=== PATIENT | male | born 1935 | race Caucasian/White ===

== ENCOUNTER 2020-07-06 22:57 | Inpatient (IN) ==
[2020-07-07] MEDS ORDERED: Ondansetron 4 MG/2 ML VIAL IVP PRN (01:27)
[2020-07-07] MEDS ORDERED: Naloxone 0.4 MG/ML INJ IVP PRN (01:27)
[2020-07-07] MEDS ORDERED: 0.9 % Sodium Chloride 1,000 ML IVC ONE ×2 (01:31→07:22)
[2020-07-07] MEDS ORDERED: *HR* LORazepam 2 MG/ML VIAL IVP PRN (01:32)
[2020-07-07 06:04] LABS: Activated Partial Thrombo Time 25.4 Seconds (26.0-36.0)
[2020-07-07 06:10] LABS: Basophils % 0.3 %; Eosinophils % 0.1 %; Hematocrit 36.7 % (37.5-50.1); Hemoglobin 12.4 g/dL (12.9-16.9); Immature Granulocytes % 0.6 % (0-4); Lymphocytes # 1.3 K/mcL (0.6-4.6); Lymphocytes % 17.6 %; Mean Corpuscular HGB Conc 33.8 g/dL (31.6-35.5); Mean Corpuscular Hemoglobin 32.5 pg (28.0-33.3); Mean Corpuscular Volume 96.1 fL (83.0-100.0); Mean Platelet Volume 10.9 fL (9.4-12.4); Monocytes # 0.7 K/mcL (0.0-1.3); Monocytes % 9.9 %; Neutrophils # 5.1 K/mcL (1.6-8.9); Platelet Count 187 K/mcL (140-400); Red Blood Count 3.82 M/mcL (4.19-5.50); Red Cell Distribution Width 12.6 % (11.5-14.5); Segmented Neutrophils % 71.5 %; White Blood Count 7.2 K/mcL (4.3-11.1)
[2020-07-07 06:21] LABS: Alanine Aminotransferase 27 Units/L (7-52); Albumin 3.3 g/dL (3.5-5.7); Albumin/Globulin Ratio 1.7 (1.1-2.2); Alkaline Phosphatase 49 Units/L (34-104); Aspartate Amino Transferase 85 Units/L (13-39); BUN/Creatinine Ratio 26 (6-26); Bilirubin,Total 1.1 mg/dL (0.3-1.0); Blood Urea Nitrogen 31 mg/dL (8-23); Calcium 7.9 mg/dL (8.6-10.3); Carbon Dioxide 20 mEq/L (23-29); Chloride 110 mEq/L (98-107); Globulin 1.9 g/dL (2.4-3.5); Glucose 102 mg/dL (70-105); Magnesium 1.8 mg/dL (1.6-2.6); Osmolality,Calculated 291 (280-300); Phosphorous 3.1 mg/dL (2.7-4.5); Potassium 3.1 mEq/L (3.5-5.1); Sodium 137 mEq/L (136-145); Total Protein 5.2 g/dL (6.4-8.9); Troponin I 0.05 ng/mL (< 0.04); eGFR For African Americans > 60 (> 60); eGFR For Non-African Americans 59 (> 60)
[2020-07-07] MEDS: Thiamine (B-1) 100 MG, Folic Acid 1 MG, MVI, adult with vitamin K 10 ML in 0.9 % Sodi... IVPB SCH ×2 (06:22→15:59)
[2020-07-07] MEDS ORDERED: Potassium Chloride 40 MEQ, Lidocaine 1% 2 ML in 0.9 % Sodium Chloride 500 ML IVPB ONE (06:43)
[2020-07-07 06:45] LABS: Creatine Kinase 5547 Units/L (30-223)
[2020-07-07] MEDS: cefTRIAXone 1,000 MG in Water for inj. (sterile) 10 ML IVP SCH (08:37)
[2020-07-07] MEDS: *HR* Heparin 5,000 UNIT/ML VIAL SQ SCH ×2 (08:37→18:03)
[2020-07-07] MEDS: Acetaminophen 325 MG TABLET PO PRN (15:13)
[2020-07-07] MEDS: *HR* LORazepam 2 MG/ML VIAL IVP PRN ×2 (17:26→21:00)
[2020-07-07] MEDS: Melatonin 3 MG TABLET PO PRN (21:04)
[2020-07-08 06:39] LABS: Basophils % 0.4 %; Eosinophils # 0.1 K/mcL (0.0-0.6); Eosinophils % 1.4 %; Hemoglobin 11.5 g/dL (12.9-16.9); Immature Granulocytes % 0.4 % (0-4); Lymphocytes # 1.1 K/mcL (0.6-4.6); Lymphocytes % 20.5 %; Mean Corpuscular HGB Conc 32.9 g/dL (31.6-35.5); Mean Corpuscular Hemoglobin 32.2 pg (28.0-33.3); Mean Platelet Volume 10.2 fL (9.4-12.4); Monocytes # 0.5 K/mcL (0.0-1.3); Monocytes % 9.4 %; Neutrophils # 3.8 K/mcL (1.6-8.9); Platelet Count 163 K/mcL (140-400); Red Blood Count 3.57 M/mcL (4.19-5.50); Red Cell Distribution Width 12.7 % (11.5-14.5); Segmented Neutrophils % 67.9 %; White Blood Count 5.6 K/mcL (4.3-11.1)
[2020-07-08] MEDS: Acetaminophen 325 MG TABLET PO PRN ×2 (06:51→19:53)
[2020-07-08] MEDS: *HR* Heparin 5,000 UNIT/ML VIAL SQ SCH ×2 (06:52→17:23)
[2020-07-08 06:57] LABS: BUN/Creatinine Ratio 20 (6-26); Blood Urea Nitrogen 19 mg/dL (8-23); Calcium 8.3 mg/dL (8.6-10.3); Carbon Dioxide 21 mEq/L (23-29); Chloride 113 mEq/L (98-107); Glucose 92 mg/dL (70-105); Osmolality,Calculated 288 (280-300); Potassium 3.7 mEq/L (3.5-5.1); Sodium 138 mEq/L (136-145); eGFR For African Americans > 60 (> 60); eGFR For Non-African Americans > 60 (> 60)
[2020-07-08] MEDS: Metoprolol XL (24 HR) Succ 50 MG TAB.ER.24H PO SCH (09:38)
[2020-07-08] MEDS: cefTRIAXone 1,000 MG in Water for inj. (sterile) 10 ML IVP SCH (09:41)
[2020-07-08] MEDS: Spironolactone 25 MG TABLET PO SCH (09:41)
[2020-07-08] MEDS: *HR* LORazepam 2 MG/ML VIAL IVP PRN (19:53)
[2020-07-08] MEDS: Melatonin 3 MG TABLET PO PRN (21:02)
[2020-07-09 00:52] LABS: Basophils % 0.7 %; Eosinophils # 0.1 K/mcL (0.0-0.6); Eosinophils % 2.3 %; Hematocrit 34.3 % (37.5-50.1); Hemoglobin 11.3 g/dL (12.9-16.9); Immature Granulocytes % 0.5 % (0-4); Lymphocytes # 1.3 K/mcL (0.6-4.6); Lymphocytes % 22.3 %; Mean Corpuscular HGB Conc 32.9 g/dL (31.6-35.5); Mean Corpuscular Hemoglobin 31.9 pg (28.0-33.3); Mean Corpuscular Volume 96.9 fL (83.0-100.0); Mean Platelet Volume 10.6 fL (9.4-12.4); Monocytes # 0.5 K/mcL (0.0-1.3); Monocytes % 8.9 %; Neutrophils # 3.9 K/mcL (1.6-8.9); Platelet Count 162 K/mcL (140-400); Red Blood Count 3.54 M/mcL (4.19-5.50); Red Cell Distribution Width 12.2 % (11.5-14.5); Segmented Neutrophils % 65.3 %
[2020-07-09 01:11] LABS: BUN/Creatinine Ratio 18 (6-26); Blood Urea Nitrogen 20 mg/dL (8-23); Calcium 8.4 mg/dL (8.6-10.3); Carbon Dioxide 20 mEq/L (23-29); Chloride 108 mEq/L (98-107); Glucose 98 mg/dL (70-105); Osmolality,Calculated 285 (280-300); Potassium 3.9 mEq/L (3.5-5.1); Sodium 136 mEq/L (136-145); eGFR For African Americans > 60 (> 60); eGFR For Non-African Americans > 60 (> 60)
[2020-07-09] MEDS: *HR* LORazepam 2 MG/ML VIAL IVP PRN ×6 (01:46→23:36)
[2020-07-09] MEDS: *HR* Heparin 5,000 UNIT/ML VIAL SQ SCH ×2 (05:20→17:20)
[2020-07-09] MEDS: Metoprolol XL (24 HR) Succ 50 MG TAB.ER.24H PO SCH (09:14)
[2020-07-09] MEDS: Spironolactone 25 MG TABLET PO SCH (09:14)
[2020-07-09] MEDS: cefTRIAXone 1,000 MG in Water for inj. (sterile) 10 ML IVP SCH (09:15)
[2020-07-09] MEDS: 0.9 % Sodium Chloride 1,000 ML IVC SCH ×2 (11:32→22:13)
[2020-07-09] MEDS: Acetaminophen 325 MG TABLET PO PRN (15:20)
[2020-07-09] MEDS: Thiamine (B-1) 100 MG, Folic Acid 1 MG, MVI, adult with vitamin K 10 ML in 0.9 % Sodi... IVPB SCH (17:19)
[2020-07-10 01:31] LABS: Basophils % 0.7 %; Eosinophils # 0.2 K/mcL (0.0-0.6); Eosinophils % 3.9 %; Hematocrit 35.5 % (37.5-50.1); Hemoglobin 11.8 g/dL (12.9-16.9); Immature Granulocytes % 0.7 % (0-4); Lymphocytes # 1.2 K/mcL (0.6-4.6); Lymphocytes % 21.6 %; Mean Corpuscular HGB Conc 33.2 g/dL (31.6-35.5); Mean Corpuscular Hemoglobin 32.4 pg (28.0-33.3); Mean Corpuscular Volume 97.5 fL (83.0-100.0); Mean Platelet Volume 10.7 fL (9.4-12.4); Monocytes # 0.5 K/mcL (0.0-1.3); Neutrophils # 3.6 K/mcL (1.6-8.9); Platelet Count 203 K/mcL (140-400); Red Blood Count 3.64 M/mcL (4.19-5.50); Red Cell Distribution Width 12.2 % (11.5-14.5); Segmented Neutrophils % 65.1 %; White Blood Count 5.6 K/mcL (4.3-11.1)
[2020-07-10 01:54] LABS: BUN/Creatinine Ratio 16 (6-26); Blood Urea Nitrogen 16 mg/dL (8-23); Calcium 8.9 mg/dL (8.6-10.3); Carbon Dioxide 24 mEq/L (23-29); Chloride 109 mEq/L (98-107); Glucose 99 mg/dL (70-105); Osmolality,Calculated 289 (280-300); Potassium 3.8 mEq/L (3.5-5.1); Sodium 139 mEq/L (136-145); eGFR For African Americans > 60 (> 60); eGFR For Non-African Americans > 60 (> 60)
[2020-07-10] MEDS: *HR* Heparin 5,000 UNIT/ML VIAL SQ SCH ×2 (05:57→17:16)
[2020-07-10] MEDS: *HR* LORazepam 2 MG/ML VIAL IVP PRN (06:28)
[2020-07-10] MEDS: cefTRIAXone 1,000 MG in Water for inj. (sterile) 10 ML IVP SCH (09:03)
[2020-07-10] MEDS: Spironolactone 25 MG TABLET PO SCH (11:10)
[2020-07-10] MEDS: Metoprolol XL (24 HR) Succ 50 MG TAB.ER.24H PO SCH (11:10)
[2020-07-11] MEDS: *HR* Heparin 5,000 UNIT/ML VIAL SQ SCH ×2 (05:34→18:37)
[2020-07-11] MEDS: cefTRIAXone 1,000 MG in Water for inj. (sterile) 10 ML IVP SCH (08:27)
[2020-07-11] MEDS: Thiamine (B-1) 100 MG TABLET PO SCH (08:28)
[2020-07-11] MEDS: Metoprolol XL (24 HR) Succ 50 MG TAB.ER.24H PO SCH (08:28)
[2020-07-11] MEDS: Spironolactone 25 MG TABLET PO SCH (08:28)
[2020-07-11] MEDS: Folic Acid 1 MG TABLET PO SCH (08:28)
[2020-07-11] MEDS: *HR* LORazepam 2 MG/ML VIAL IVP PRN ×4 (14:25→20:24)
[2020-07-11] MEDS ORDERED: Dexmedetomidine HCl 400 MCG/100 ML MLS IVC SCH (22:30)
[2020-07-12] MEDS: *HR* LORazepam 2 MG/ML VIAL IVP PRN ×2 (05:54→06:07)
[2020-07-12] MEDS: *HR* Heparin 5,000 UNIT/ML VIAL SQ SCH ×2 (05:55→18:00)
[2020-07-12] MEDS: Folic Acid 1 MG TABLET PO SCH ×2 (08:00→09:19)
[2020-07-12] MEDS: Thiamine (B-1) 100 MG TABLET PO SCH ×2 (08:00→09:19)
[2020-07-12] MEDS: cefTRIAXone 1,000 MG in Water for inj. (sterile) 10 ML IVP SCH (08:00)
[2020-07-12] MEDS ORDERED: 0.9 % Sodium Chloride 500 ML IVC ONE (08:05)
[2020-07-12] MEDS ORDERED: 0.9 % Sodium Chloride 500 ML ONE (08:08)
[2020-07-12] MEDS: Spironolactone 25 MG TABLET PO SCH (09:18)
[2020-07-12] MEDS: Metoprolol XL (24 HR) Succ 50 MG TAB.ER.24H PO SCH (09:19)
[2020-07-12] MEDS ORDERED: 0.9 % Sodium Chloride 1,000 ML IVC ONE (09:37)
[2020-07-12] MEDS ORDERED: Melatonin 3 MG TABLET PO PRN (14:57)
[2020-07-12] MEDS ORDERED: *HR* LORazepam 2 MG/ML VIAL IVP PRN ×3 (14:57)
[2020-07-12] MEDS ORDERED: Naloxone 0.4 MG/ML INJ IVP PRN (14:57)
[2020-07-12] MEDS ORDERED: Ondansetron 4 MG/2 ML VIAL IVP PRN (14:57)
[2020-07-12] MEDS ORDERED: Dexmedetomidine HCl 400 MCG/100 ML MLS IVC SCH (14:57)
[2020-07-12] MEDS ORDERED: Acetaminophen 325 MG TABLET PO PRN (14:57)
[2020-07-13 01:59] LABS: Basophils # 0.1 K/mcL (0.0-0.2); Basophils % 0.6 %; Eosinophils # 0.1 K/mcL (0.0-0.6); Eosinophils % 1.4 %; Hematocrit 38.8 % (37.5-50.1); Hemoglobin 12.9 g/dL (12.9-16.9); Lymphocytes # 1.4 K/mcL (0.6-4.6); Lymphocytes % 16.7 %; Mean Corpuscular HGB Conc 33.2 g/dL (31.6-35.5); Mean Corpuscular Hemoglobin 32.1 pg (28.0-33.3); Mean Corpuscular Volume 96.5 fL (83.0-100.0); Mean Platelet Volume 10.3 fL (9.4-12.4); Monocytes # 0.8 K/mcL (0.0-1.3); Monocytes % 9.3 %; Neutrophils # 5.9 K/mcL (1.6-8.9); Platelet Count 252 K/mcL (140-400); Red Blood Count 4.02 M/mcL (4.19-5.50); Red Cell Distribution Width 12.5 % (11.5-14.5); White Blood Count 8.4 K/mcL (4.3-11.1)
[2020-07-13 02:17] LABS: BUN/Creatinine Ratio 24 (6-26); Blood Urea Nitrogen 28 mg/dL (8-23); Calcium 9.1 mg/dL (8.6-10.3); Carbon Dioxide 24 mEq/L (23-29); Chloride 108 mEq/L (98-107); Glucose 93 mg/dL (70-105); Magnesium 1.8 mg/dL (1.6-2.6); Osmolality,Calculated 297 (280-300); Phosphorous 3.7 mg/dL (2.7-4.5); Potassium 3.9 mEq/L (3.5-5.1); Sodium 141 mEq/L (136-145); eGFR For African Americans > 60 (> 60); eGFR For Non-African Americans 58 (> 60)
[2020-07-13] MEDS: *HR* Heparin 5,000 UNIT/ML VIAL SQ SCH (05:48)
[2020-07-13] MEDS ORDERED: Metoprolol XL (24 HR) Succ 50 MG TAB.ER.24H PO SCH (09:00)
[2020-07-13] MEDS ORDERED: Folic Acid 1 MG TABLET PO SCH (09:00)
[2020-07-13] MEDS ORDERED: Spironolactone 25 MG TABLET PO SCH (09:00)
[2020-07-13] MEDS ORDERED: Thiamine (B-1) 100 MG TABLET PO SCH (09:00)
[2020-07-13 10:54] LABS: Adenovirus Not Detected (Not Detect); Coronavirus 229E Not Detected (Not Detect); Coronavirus HKU1 Not Detected (Not Detect); Coronavirus NL63 Not Detected (Not Detect); Coronavirus OC43 Not Detected (Not Detect); Human Metapneumovirus Not Detected (Not Detect); Human Rhinovirus/Enterovirus Not Detected (Not Detect); SARS-CoV-2 Not Detected (Not Detect)
[2020-07-13 10:55] LABS: Bordetella Pertussis Not Detected (Not Detect); Chlamydophila pneumoniae Not Detected (Not Detect); Influenza A Subtype 2009 H1 Not Detected (Not Detect); Influenza B Not Detected (Not Detect); Mycoplasma pneumoniae Not Detected (Not Detect); Parainfluenza Virus 1 Not Detected (Not Detect); Parainfluenza Virus 2 Not Detected (Not Detect); Parainfluenza Virus 3 Not Detected (Not Detect); Parainfluenza Virus 4 Not Detected (Not Detect); Respiratory Syncytial Virus Not Detected (Not Detect)
[2020-07-13 11:51] VITALS: BP 171/80
== END 2020-07-13 12:41 | DRG 558 ==
LOC: 2ANU → SUATTDRO 07-10 08:29 → 2NNU 07-11 23:08
PROVIDERS: ADMIT Family Medicine; ATTEND Family Medicine

== ENCOUNTER 2021-10-16 10:52 | Inpatient (IN) ==
[2021-10-16 11:24] LABS: Basophils % 0.5 %; Eosinophils # 0.1 K/mcL (0.0-0.6); Eosinophils % 1.1 %; Hematocrit 40.9 % (37.5-50.1); Hemoglobin 13.7 g/dL (12.9-16.9); Immature Granulocytes % 0.5 % (0-4); Lymphocytes # 1.7 K/mcL (0.6-4.6); Lymphocytes % 20.5 %; Mean Corpuscular HGB Conc 33.5 g/dL (31.6-35.5); Mean Corpuscular Hemoglobin 29.3 pg (28.0-33.3); Mean Corpuscular Volume 87.6 fL (83.0-100.0); Mean Platelet Volume 10.6 fL (9.4-12.4); Monocytes # 0.5 K/mcL (0.0-1.3); Monocytes % 5.6 %; Neutrophils # 5.8 K/mcL (1.6-8.9); Platelet Count 247 K/mcL (140-400); Red Blood Count 4.67 M/mcL (4.19-5.50); Red Cell Distribution Width 12.9 % (11.5-14.5); Segmented Neutrophils % 71.8 %
[2021-10-16 11:34] LABS: Prothrombin Time 11.3 Seconds (9.4-12.1)
[2021-10-16 11:36] LABS: Activated Partial Thrombo Time 34.5 Seconds (26.0-36.0)
[2021-10-16 12:06] LABS: Alanine Aminotransferase 12 Units/L (7-52); Albumin 3.9 g/dL (3.5-5.7); Albumin/Globulin Ratio 1.4 (1.1-2.2); Alkaline Phosphatase 78 Units/L (34-104); Aspartate Amino Transferase 17 Units/L (13-39); BUN/Creatinine Ratio 16 (6-26); Bilirubin,Direct 0.2 mg/dL (0.0-0.2); Bilirubin,Indirect 0.7 mg/dL (0.0-1.0); Bilirubin,Total 0.9 mg/dL (0.3-1.0); Blood Urea Nitrogen 22 mg/dL (8-23); Calcium 9.4 mg/dL (8.6-10.3); Carbon Dioxide 19 mEq/L (23-29); Chloride 109 mEq/L (98-107); Creatine Kinase 169 Units/L (30-223); Ethanol < 10 mg/dL (Less than 10); Globulin 2.7 g/dL (2.4-3.5); Glucose 81 mg/dL (70-105); Osmolality,Calculated 290 (280-300); Sodium 139 mEq/L (136-145); Total Protein 6.6 g/dL (6.4-8.9); Troponin I < 0.03 ng/mL (< 0.04); eGFR For African Americans > 60 (> 60); eGFR For Non-African Americans 50 (> 60)
[2021-10-16 12:32] LABS: Influenza A PCR Negative (Negative); Influenza B PCR Negative (Negative); Resp. Syncytial Virus PCR Negative (Negative)
[2021-10-16 12:45] LABS: Bilirubin,Urine Negative (Negative); Blood,Urine Large (Negative); Clarity,Urine Turbid (Clear); Color,Urine Light-Yellow (Yellow); Glucose,Urine (UA) Normal (Normal); Ketones,Urine 40 mg/dL (Negative); Leukocyte Esterase,Urine Negative (Negative); Mucus,Urine Few per lpf (None-Few); Nitrite,Urine Negative (Negative); PH,Urine 5.5 pH Units (5.0-8.0); Protein,Urine 30 mg/dL (Neg-Trace); RBC,Urine TNTC per hpf (0-3); Specific Gravity,Urine 1.023 (1.010-1.025); Urobilinogen,Urine Normal (Normal); WBC,Urine 0-3 per hpf (0-3)
[2021-10-16 13:09] LABS: SARS-CoV-2 by PCR (In House) Negative (Negative)
[2021-10-16] MEDS ORDERED: *HR* LORazepam 2 MG/ML VIAL IVP ONE (13:47)
[2021-10-16] MEDS ORDERED: 0.9 % Sodium Chloride 1,000 ML IVC ONE (15:07)
[2021-10-16] MEDS ORDERED: MOM Conc 10 ML UD.LIQ PO PRN (15:49)
[2021-10-16] MEDS ORDERED: Melatonin 3 MG TABLET PO PRN (15:49)
[2021-10-16] MEDS ORDERED: Naloxone 0.4 MG/ML INJ IVP PRN (15:49)
[2021-10-16] MEDS ORDERED: Ondansetron 4 MG/2 ML VIAL IVP PRN (15:49)
[2021-10-16] MEDS ORDERED: Acetaminophen 325 MG TABLET PO PRN (15:49)
[2021-10-16] MEDS ORDERED: Ringers Solution, Lactated 1,000 ML IVC SCH (16:00)
[2021-10-16] MEDS ORDERED: 0.9 % Sodium Chloride 1,000 ML IVC SCH (19:45)
[2021-10-17 02:54] LABS: Basophils % 0.5 %; Eosinophils # 0.1 K/mcL (0.0-0.6); Eosinophils % 1.8 %; Hematocrit 39.2 % (37.5-50.1); Immature Granulocytes % 0.4 % (0-4); Lymphocytes # 1.6 K/mcL (0.6-4.6); Lymphocytes % 20.5 %; Mean Corpuscular HGB Conc 33.2 g/dL (31.6-35.5); Mean Corpuscular Hemoglobin 29.7 pg (28.0-33.3); Mean Corpuscular Volume 89.7 fL (83.0-100.0); Mean Platelet Volume 10.4 fL (9.4-12.4); Monocytes # 0.6 K/mcL (0.0-1.3); Monocytes % 7.5 %; Neutrophils # 5.4 K/mcL (1.6-8.9); Platelet Count 198 K/mcL (140-400); Red Blood Count 4.37 M/mcL (4.19-5.50); Red Cell Distribution Width 12.9 % (11.5-14.5); Segmented Neutrophils % 69.3 %; White Blood Count 7.8 K/mcL (4.3-11.1)
[2021-10-17 04:07] LABS: BUN/Creatinine Ratio 16 (6-26); Blood Urea Nitrogen 18 mg/dL (8-23); Calcium 8.7 mg/dL (8.6-10.3); Carbon Dioxide 20 mEq/L (23-29); Chloride 110 mEq/L (98-107); Glucose 80 mg/dL (70-105); Magnesium 1.9 mg/dL (1.6-2.6); Osmolality,Calculated 285 (280-300); Phosphorous 3.7 mg/dL (2.7-4.5); Potassium 3.8 mEq/L (3.5-5.1); Sodium 137 mEq/L (136-145); eGFR For African Americans > 60 (> 60); eGFR For Non-African Americans > 60 (> 60)
[2021-10-17 04:08] LABS: Folate > 22.3 ng/mL (3.0-16.0); Vitamin B12 588 pg/mL (250-1100)
[2021-10-17] MEDS: *HR* Heparin 5,000 UNIT/ML VIAL SQ SCH (17:09)
[2021-10-17] MEDS ORDERED: Sennosides/Docusate Sodium TABLET PO PRN (18:46)
[2021-10-17] MEDS: *HR* LORazepam 0.5 MG TABLET PO PRN (20:50)
[2021-10-18] MEDS: *HR* Heparin 5,000 UNIT/ML VIAL SQ SCH (05:36)
[2021-10-18] MEDS: Folic Acid 1 MG TABLET PO SCH (09:12)
[2021-10-18] MEDS: Aspirin Enteric Coated 81 MG Tablet PO SCH (09:12)
[2021-10-18] MEDS: Thiamine (B-1) 100 MG TABLET PO SCH (09:12)
[2021-10-18] MEDS: Hyoscyamine SL 0.125 MG TAB.SUBL SL SCH ×2 (15:57→20:56)
[2021-10-19] MEDS: Hyoscyamine SL 0.125 MG TAB.SUBL SL SCH ×4 (02:05→21:21)
[2021-10-19] MEDS: Thiamine (B-1) 100 MG TABLET PO SCH (08:55)
[2021-10-19] MEDS: Aspirin Enteric Coated 81 MG Tablet PO SCH (08:55)
[2021-10-19] MEDS: Folic Acid 1 MG TABLET PO SCH (08:56)
[2021-10-19 09:05] LABS: Basophils # 0.1 K/mcL (0.0-0.2); Basophils % 0.7 %; Eosinophils # 0.2 K/mcL (0.0-0.6); Eosinophils % 3.4 %; Hematocrit 42.1 % (37.5-50.1); Hemoglobin 13.7 g/dL (12.9-16.9); Immature Granulocytes % 0.7 % (0-4); Lymphocytes # 1.6 K/mcL (0.6-4.6); Lymphocytes % 22.9 %; Mean Corpuscular HGB Conc 32.5 g/dL (31.6-35.5); Mean Corpuscular Hemoglobin 29.4 pg (28.0-33.3); Mean Corpuscular Volume 90.3 fL (83.0-100.0); Mean Platelet Volume 10.3 fL (9.4-12.4); Monocytes # 0.5 K/mcL (0.0-1.3); Monocytes % 6.7 %; Neutrophils # 4.5 K/mcL (1.6-8.9); Platelet Count 219 K/mcL (140-400); Red Blood Count 4.66 M/mcL (4.19-5.50); Segmented Neutrophils % 65.6 %; White Blood Count 6.9 K/mcL (4.3-11.1)
[2021-10-19 09:25] LABS: BUN/Creatinine Ratio 17 (6-26); Blood Urea Nitrogen 20 mg/dL (8-23); Calcium 8.9 mg/dL (8.6-10.3); Carbon Dioxide 23 mEq/L (23-29); Chloride 105 mEq/L (98-107); Glucose 116 mg/dL (70-105); Magnesium 1.9 mg/dL (1.6-2.6); Osmolality,Calculated 284 (280-300); Phosphorous 3.7 mg/dL (2.7-4.5); Sodium 135 mEq/L (136-145); eGFR For African Americans > 60 (> 60); eGFR For Non-African Americans 59 (> 60)
[2021-10-19 10:36] LABS: Kappa Qnt Free Light Chains 19.82 mg/L (3.30-19.40); Lambda Qnt Free Light Chains 18.11 mg/L (5.71-26.30)
[2021-10-20 00:01] LABS: Alpha 2 Globulin (PEP) 0.77 g/dL (0.48-1.05); Beta Globulin (PEP) 0.68 g/dL (0.48-1.10)
[2021-10-20] MEDS: Hyoscyamine SL 0.125 MG TAB.SUBL SL SCH ×4 (02:44→20:26)
[2021-10-20] MEDS: Folic Acid 1 MG TABLET PO SCH (09:46)
[2021-10-20] MEDS: Aspirin Enteric Coated 81 MG Tablet PO SCH (09:46)
[2021-10-20] MEDS: Thiamine (B-1) 100 MG TABLET PO SCH (09:46)
[2021-10-20 11:27] LABS: IFE Reflexed NOT DONE
[2021-10-20] MEDS: *HR* LORazepam 0.5 MG TABLET PO PRN (20:23)
[2021-10-21] MEDS: Hyoscyamine SL 0.125 MG TAB.SUBL SL SCH ×4 (07:14→20:42)
[2021-10-21 07:16] LABS: Hematocrit 39.9 % (37.5-50.1); Hemoglobin 13.1 g/dL (12.9-16.9); Mean Corpuscular HGB Conc 32.8 g/dL (31.6-35.5); Mean Corpuscular Hemoglobin 29.9 pg (28.0-33.3); Mean Corpuscular Volume 91.1 fL (83.0-100.0); Mean Platelet Volume 10.7 fL (9.4-12.4); Platelet Count 252 K/mcL (140-400); Red Blood Count 4.38 M/mcL (4.19-5.50); Red Cell Distribution Width 12.9 % (11.5-14.5)
[2021-10-21 07:36] LABS: BUN/Creatinine Ratio 22 (6-26); Blood Urea Nitrogen 28 mg/dL (8-23); Calcium 8.7 mg/dL (8.6-10.3); Carbon Dioxide 30 mEq/L (23-29); Chloride 103 mEq/L (98-107); Glucose 94 mg/dL (70-105); Osmolality,Calculated 291 (280-300); Potassium 4.7 mEq/L (3.5-5.1); Sodium 138 mEq/L (136-145); eGFR For African Americans > 60 (> 60); eGFR For Non-African Americans 55 (> 60)
[2021-10-21] MEDS: Folic Acid 1 MG TABLET PO SCH (08:55)
[2021-10-21] MEDS: Thiamine (B-1) 100 MG TABLET PO SCH (08:55)
[2021-10-21] MEDS: Aspirin Enteric Coated 81 MG Tablet PO SCH (08:55)
[2021-10-22] MEDS: Hyoscyamine SL 0.125 MG TAB.SUBL SL SCH ×4 (02:55→20:17)
[2021-10-22 05:34] LABS: BUN/Creatinine Ratio 25 (6-26); Blood Urea Nitrogen 28 mg/dL (8-23); Carbon Dioxide 25 mEq/L (23-29); Chloride 104 mEq/L (98-107); Glucose 96 mg/dL (70-105); Osmolality,Calculated 287 (280-300); Potassium 4.2 mEq/L (3.5-5.1); Sodium 136 mEq/L (136-145); eGFR For African Americans > 60 (> 60); eGFR For Non-African Americans > 60 (> 60)
[2021-10-22] MEDS: Thiamine (B-1) 100 MG TABLET PO SCH (08:03)
[2021-10-22] MEDS: Aspirin Enteric Coated 81 MG Tablet PO SCH (08:03)
[2021-10-22] MEDS: Folic Acid 1 MG TABLET PO SCH (08:03)
[2021-10-22] MEDS: *HR* LORazepam 0.5 MG TABLET PO PRN (21:09)
[2021-10-23] MEDS: Hyoscyamine SL 0.125 MG TAB.SUBL SL SCH ×2 (04:13→08:04)
[2021-10-23] MEDS: Aspirin Enteric Coated 81 MG Tablet PO SCH (08:04)
[2021-10-23] MEDS: Folic Acid 1 MG TABLET PO SCH (08:04)
[2021-10-23] MEDS: Thiamine (B-1) 100 MG TABLET PO SCH (08:04)
[2021-10-23 11:13] VITALS: BP 158/82; PULSE 95; TEMP 97.7; O2SAT 93
== END 2021-10-23 14:26 | disposition home health service (06) | DRG 682 ==
LOC: EDBD → 3BNU 10:52 → EMEROOARM 10:52 → MERGE 15:33 → SUATTDRO 15:33 → 3BNU 16:36 → SUATTDRO 10-17 12:01
PROVIDERS: ADMIT General Practice; ATTEND Internal Medicine